=== PATIENT | female | born 1945 | race Caucasian/White ===

== ENCOUNTER 2022-10-28 16:51 | Emergency (ER) | payer BC ==
[~2022-10-28] VITALS: Ht 162.6 cm; Wt 72.6 kg
[2022-10-28 17:14] VITALS: BP 138/66
[2022-10-28 17:30] LABS: BASOPHILS # (AUTO) 0.1 K/uL (0.00-0.22); BASOPHILS % (AUTO) 1.2 % (0.0-2.0); EOSINOPHILS # (AUTO) 0.2 K/uL (0-0.4); EOSINOPHILS % (AUTO) 4.2 % (0.0-4.0); HEMATOCRIT 34.6 % (36-48); HEMOGLOBIN 11.6 g/dL (12.0-16.0); LYMPHOCYTES # (AUTO) 1.2 K/uL (2.5-16.5); MEAN CORPUSCULAR HEMOGLOBIN 31 pg (27-31); MEAN CORPUSCULAR HGB CONC 34 g/dL (33-37); MEAN CORPUSCULAR VOLUME 92.4 fL (80-94); MONOCYTES # (AUTO) 0.8 K/uL (0.8-1.0); MONOCYTES % (AUTO) 13.4 % (1.7-9.3); NEUTROPHILS # (AUTO) 3.6 K/uL (1.8-7.7); NEUTROPHILS % (AUTO) 61.2 % (42.2-75.2); PLATELET COUNT (AUTO) 185 K/uL (140-450); RED BLOOD CELL COUNT(AUTO) 3.74 MIL/uL (4.20-5.40); RED CELL DISTRIBUTION WIDTH 13.8 % (11.6-13.7); WHITE BLOOD COUNT (AUTO) 5.9 K/uL (4.8-10.8)
--- NOTE | 2022-10-28 17:35 | NUR ---
[facility];SARATH BURLESON [phone]
[2022-10-28 18:07] LABS: ALBUMIN 3.4 g/dL (3.4-5.0); ANION GAP 12.7 (8-16); ASPARTATE AMINOTRANSFERASE 22 U/L (15-37); CARBON DIOXIDE 26.4 mmol/L (21-32); CHLORIDE 104 mmol/L (98-107); CREATININE 0.7 mg/dL (0.6-1.3); GLUCOSE 127 mg/dL (74-106); POTASSIUM 4.1 mmol/L (3.5-5.1); SODIUM SERUM 139 mmol/L (136-145); TOTAL BILIRUBIN 0.3 mg/dL (0.0-1.0); UREA NITROGEN, BLOOD 18 mg/dL (7-18)
--- NOTE | 2022-10-28 18:10 | NUR ---
BIBA BLS TO ER BED 9
[2022-10-28] MEDS ORDERED: ACETAMINOPHEN EXTRA STRENGTH 500 MG TAB PO ONE (18:25)
--- NOTE | 2022-10-28 18:41 | NUR ---
ASSUMED PATIENT CARE, NURSING ASSESSMENT COMPLETED.
[2022-10-28 19:11] VITALS: BP 145/68
--- NOTE | 2022-10-28 19:45 | NUR ---
76 Y/O F presents with c/o of headache with a recent mechanical fall xyesterday at facility with L hip and knee pain. pt denies any pain at the moment. pt has a purewick in place and came from [facility]. pt is DNR with comfort measures. PMH- dementia YUNIORA
--- NOTE | 2022-10-28 20:04 | NUR ---
pt in room, respirations even and unlabored. pure wick in place and pt repositioned for comfort.
[2022-10-28] MEDS ORDERED: ACET-10509 PO (20:12)
--- NOTE | 2022-10-28 21:00 | NUR ---
spoke with cesilia at [facility] [phone] and [facility] approed the niee of pt to transport pt back to facility.
--- NOTE | 2022-10-28 21:02 | NUR ---
niece of pt is bedside assisting pt in getting dressed and preparing for discharge
--- NOTE | 2022-10-28 21:09 | NUR ---
Patient discharged with v/s stable. Written and verbal after care instructions given and explained. Patient alert, oriented and verbalized understanding of instructions. Wheel Chair Assisted with by caregiver. All questions addressed prior to discharge. ID band removed. Patient advised to follow up with PMD. Rx of acetamiophen given. . Opportunity to ask questions provided and answered.
--- NOTE | 2022-10-28 22:06 | NUR ---
The patient's care was reviewed and supervised by Fabby Wiggins RN, RN.
== END 2022-10-28 21:09 | disposition home or self-care (01) ==
LOC: MED 16:51
DX: M54.2 Cervicalgia (principal); M25.551 Pain in right hip; M25.552 Pain in left hip; R51.9 Headache, unspecified; Z20.822 Contact with and (suspected) exposure to COVID-19; F03.90 Unspecified dementia, unspecified severity, without behavioral disturbance, psychotic disturbance, mood disturbance, and anxiety; Z96.641 Presence of right artificial hip joint; W18.39XA Other fall on same level, initial encounter; Y92.129 Unspecified place in nursing home as the place of occurrence of the external cause; Y93.89 Activity, other specified; Y99.8 Other external cause status
CPT/HCPCS: 36415; 70450; 71045; 72125; 72170; 80053; 83605; 84484; 85025; 87040; 87426; 93005; 99285; G0482; Q0092

== ENCOUNTER 2023-03-23 20:27 | Emergency (ER) | payer BC ==
[~2023-03-23] VITALS: Ht 157.5 cm; Wt 59.0 kg
[~2023-03-23 20:27] MED LIST: ACET-10509 PO
[2023-03-23 20:30] VITALS: BP 144/71; PULSE 68; RESP 17; TEMP 97.2; O2SAT 96
[2023-03-23] MEDS ORDERED: cefTRIAXone 1,000 MG in DEXT 5% MINI-BAG PLUS 50 ML IV ONE (20:45)
[2023-03-23] MEDS ORDERED: cefTRIAXone 1,000 MG VIAL ONE (21:16)
[2023-03-23 21:46] LABS: BASOPHILS # (AUTO) 0.1 K/uL (0.00-0.22); BASOPHILS % (AUTO) 1.3 % (0.0-2.0); EOSINOPHILS # (AUTO) 0.1 K/uL (0-0.4); EOSINOPHILS % (AUTO) 2.4 % (0.0-4.0); HEMATOCRIT 34.7 % (36-48); HEMOGLOBIN 11.7 g/dL (12.0-16.0); LYMPHOCYTES # (AUTO) 1.6 K/uL (2.5-16.5); LYMPHOCYTES % (AUTO) 28.6 % (20.5-51.1); MEAN CORPUSCULAR HEMOGLOBIN 31 pg (27-31); MEAN CORPUSCULAR HGB CONC 34 g/dL (33-37); MEAN CORPUSCULAR VOLUME 91.9 fL (80-94); MONOCYTES # (AUTO) 0.7 K/uL (0.8-1.0); MONOCYTES % (AUTO) 12.6 % (1.7-9.3); NEUTROPHILS # (AUTO) 3.1 K/uL (1.8-7.7); NEUTROPHILS % (AUTO) 55.1 % (42.2-75.2); PLATELET COUNT (AUTO) 147 K/uL (140-450); RED BLOOD CELL COUNT(AUTO) 3.78 MIL/uL (4.20-5.40); RED CELL DISTRIBUTION WIDTH 14.4 % (11.6-13.7); WHITE BLOOD COUNT (AUTO) 5.7 K/uL (4.8-10.8)
[2023-03-23 21:56] LABS: ALANINE AMINOTRANSFERASE 24 U/L (12-78); ALBUMIN 3.4 g/dL (3.4-5.0); ALKALINE PHOSPHATASE 91 U/L (50-136); ANION GAP 11.1 (8-16); ASPARTATE AMINOTRANSFERASE 23 U/L (15-37); CALCIUM 8.9 mg/dL (8.5-10.1); CARBON DIOXIDE 26.8 mmol/L (21-32); CHLORIDE 106 mmol/L (98-107); CREATININE 0.8 mg/dL (0.6-1.3); GLUCOSE 85 mg/dL (74-106); POTASSIUM 3.9 mmol/L (3.5-5.1); SODIUM SERUM 140 mmol/L (136-145); TOTAL BILIRUBIN 0.3 mg/dL (0.0-1.0); TOTAL PROTEIN, SERUM 6.7 g/dL (6.4-8.2); UREA NITROGEN, BLOOD 19 mg/dL (7-18)
[2023-03-23 22:00] LABS: LACTIC ACID 0.6 mmol/L (0.4-2.0)
[2023-03-23 22:50] LABS: APPEARANCE,URINE CLEAR (CLEAR); BILIRUBIN,URINE NEGATIVE (NEGATIVE); BLOOD, URINE NEGATIVE (NEGATIVE); COLOR,URINE YELLOW (YELLOW); LEUKOCYTE ESTERASE ,URINE NEGATIVE (NEGATIVE); NITRITE, URINE NEGATIVE (NEGATIVE); PH,URINE 6.5 (5.0-9.0); PROTEIN,URINE NEGATIVE (NEGATIVE); UGLUCOSE NEGATIVE (NEGATIVE); UROBILINOGEN,URINE 0.2 EU/dL (0.2 - 1)
[2023-03-24 00:05] VITALS: BP 171/82; PULSE 62; RESP 17; TEMP 97.2; O2SAT 99
== END 2023-03-24 00:05 | disposition home or self-care (01) ==
LOC: MED 20:27
DX: R53.83 Other fatigue (principal); D53.9 Nutritional anemia, unspecified; F03.90 Unspecified dementia, unspecified severity, without behavioral disturbance, psychotic disturbance, mood disturbance, and anxiety; I10 Essential (primary) hypertension; K21.9 Gastro-esophageal reflux disease without esophagitis; E03.9 Hypothyroidism, unspecified; Z79.899 Other long term (current) drug therapy
CPT/HCPCS: 36415; 70450; 71045; 80053; 81003; 83605; 83880; 84484; 85025; 87040; 87086; 93005; 96365; 99285; J0696; Q0092

== ENCOUNTER 2023-05-27 10:15 | Inpatient (IN) | payer OTHER, MEDICAID ==
[~2023-05-27] VITALS: Ht 160 cm; Wt 52.2 kg
[2023-05-27 10:19] VITALS: BP 120/67; PULSE 75; RESP 18; TEMP 97.8; O2SAT 97
[2023-05-27] MEDS ORDERED: NACL 0.9% 1,000 ML IV ONE (11:05)
[2023-05-27 13:42] LABS: BASOPHILS % (AUTO) 0.8 % (0.0-2.0); EOSINOPHILS # (AUTO) 0.2 K/uL (0-0.4); EOSINOPHILS % (AUTO) 2.4 % (0.0-4.0); HEMATOCRIT 38.4 % (36-48); HEMOGLOBIN 12.6 g/dL (12.0-16.0); LYMPHOCYTES # (AUTO) 1.2 K/uL (2.5-16.5); MEAN CORPUSCULAR HEMOGLOBIN 31 pg (27-31); MEAN CORPUSCULAR HGB CONC 33 g/dL (33-37); MEAN CORPUSCULAR VOLUME 93.3 fL (80-94); MONOCYTES # (AUTO) 0.6 K/uL (0.8-1.0); MONOCYTES % (AUTO) 9.6 % (1.7-9.3); NEUTROPHILS # (AUTO) 4.2 K/uL (1.8-7.7); NEUTROPHILS % (AUTO) 67.2 % (42.2-75.2); PLATELET COUNT (AUTO) 150 K/uL (140-450); RED BLOOD CELL COUNT(AUTO) 4.12 MIL/uL (4.20-5.40); RED CELL DISTRIBUTION WIDTH 14.6 % (11.6-13.7); WHITE BLOOD COUNT (AUTO) 6.3 K/uL (4.8-10.8)
[2023-05-27 13:59] LABS: ALANINE AMINOTRANSFERASE 22 U/L (12-78); ALBUMIN 3.2 g/dL (3.4-5.0); ALKALINE PHOSPHATASE 76 U/L (50-136); ANION GAP 11.2 (8-16); ASPARTATE AMINOTRANSFERASE 29 U/L (15-37); CALCIUM 8.7 mg/dL (8.5-10.1); CARBON DIOXIDE 25.7 mmol/L (21-32); CHLORIDE 109 mmol/L (98-107); CREATININE 0.6 mg/dL (0.6-1.3); GLUCOSE 84 mg/dL (74-106); POTASSIUM 3.9 mmol/L (3.5-5.1); SODIUM SERUM 142 mmol/L (136-145); TOTAL BILIRUBIN 0.4 mg/dL (0.0-1.0); TOTAL PROTEIN, SERUM 6.8 g/dL (6.4-8.2); UREA NITROGEN, BLOOD 9 mg/dL (7-18)
[2023-05-27 15:38] LABS: THYROID STIMULATING HORMONE 16.59 uIU/mL (0.34-3.74)
[2023-05-27 16:36] LABS: APPEARANCE,URINE CLEAR (CLEAR); BILIRUBIN,URINE NEGATIVE (NEGATIVE); BLOOD, URINE NEGATIVE (NEGATIVE); COLOR,URINE YELLOW (YELLOW); LEUKOCYTE ESTERASE ,URINE NEGATIVE (NEGATIVE); NITRITE, URINE NEGATIVE (NEGATIVE); PH,URINE 7.5 (5.0-9.0); PROTEIN,URINE NEGATIVE (NEGATIVE); UGLUCOSE NEGATIVE (NEGATIVE); UROBILINOGEN,URINE 0.2 EU/dL (0.2 - 1)
[2023-05-27] MEDS ORDERED: ONDANSETRON 4 MG/2 ML VIAL IVP PRN (17:05)
[2023-05-27] MEDS ORDERED: HYDROcodone/APAP 5/325 MG 1 TAB TAB PO PRN (17:10)
[2023-05-27 19:30] VITALS: BP 150/72; PULSE 69; PULSE 82; RESP 18; TEMP 96.1; O2SAT 98
[2023-05-27 20:00] VITALS: PULSE 69; RESP 18; O2SAT 98
[2023-05-28] VITALS (9 sets, daily range): BP systolic 88–168; BP diastolic 61–81; PULSE 54–96; RESP 18; TEMP 96–97.2; O2SAT 95–99
[2023-05-28] MEDS: LEVOTHYROXINE 0.075 MG TAB PO SCH ×2 (06:17→06:41)
[2023-05-28] MEDS: MEMANTINE 10 MG TAB PO SCH (08:02)
[2023-05-28] MEDS: FAMOTIDINE 20 MG TAB PO SCH (08:02)
[2023-05-28] MEDS: LOSARTAN 25 MG TAB PO SCH (13:25)
[2023-05-28] MEDS: NACL 0.9% 1,000 ML IV SCH (16:41)
[2023-05-29] VITALS (7 sets, daily range): BP systolic 132–158; BP diastolic 66–89; PULSE 70–104; RESP 17–20; TEMP 97.1–98; O2SAT 93–100
[2023-05-29] MEDS: NACL 0.9% 1,000 ML IV SCH (04:25)
[2023-05-29] MEDS: LEVOTHYROXINE 0.075 MG TAB PO SCH (05:33)
[2023-05-29] MEDS: LOSARTAN 25 MG TAB PO SCH (09:17)
[2023-05-29] MEDS: FAMOTIDINE 20 MG TAB PO SCH (09:17)
[2023-05-29] MEDS: MEMANTINE 10 MG TAB PO SCH (09:17)
[2023-05-29] MEDS ORDERED: LISI2.5T14 PO (11:22)
[2023-05-29] MEDS ORDERED: SPIR25TA20 PO (11:22)
[2023-05-29] MEDS ORDERED: CARV3.12 PO (11:22)
[2023-05-29] MEDS ORDERED: MEMA10TA PO (11:22)
[2023-05-29] MEDS ORDERED: LEVO150C2 PO (11:22)
[2023-05-29] MEDS: HALOPERIDOL IM 5 MG/ML VIAL IM PRN ×2 (14:18→20:32)
[2023-05-29] MEDS: carvediloL 3.125 MG TAB PO SCH (20:32)
[2023-05-30 04:00] VITALS: BP 153/64; PULSE 65; RESP 16; TEMP 97.9; O2SAT 98
[2023-05-30] MEDS: LEVOTHYROXINE 0.075 MG TAB PO SCH (06:13)
[2023-05-30 06:58] LABS: BASOPHILS # (AUTO) 0.1 K/uL (0.00-0.22); EOSINOPHILS # (AUTO) 0.2 K/uL (0-0.4); HEMOGLOBIN 13.3 g/dL (12.0-16.0); LYMPHOCYTES # (AUTO) 1.9 K/uL (2.5-16.5); WHITE BLOOD COUNT (AUTO) 7.1 K/uL (4.8-10.8)
[2023-05-30 06:59] LABS: EOSINOPHILS % (AUTO) 2.5 % (0.0-4.0); LYMPHOCYTES % (AUTO) 26.9 % (20.5-51.1); MEAN CORPUSCULAR HEMOGLOBIN 31 pg (27-31); MEAN CORPUSCULAR HGB CONC 33 g/dL (33-37); MEAN CORPUSCULAR VOLUME 92.3 fL (80-94); MONOCYTES # (AUTO) 0.8 K/uL (0.8-1.0); MONOCYTES % (AUTO) 11.2 % (1.7-9.3); NEUTROPHILS # (AUTO) 4.2 K/uL (1.8-7.7); NEUTROPHILS % (AUTO) 58.4 % (42.2-75.2); PLATELET COUNT (AUTO) 116 K/uL (140-450); RED BLOOD CELL COUNT(AUTO) 4.34 MIL/uL (4.20-5.40); RED CELL DISTRIBUTION WIDTH 14.4 % (11.6-13.7)
[2023-05-30 07:02] LABS: ANION GAP 10.8 (8-16); CALCIUM 9.2 mg/dL (8.5-10.1); CARBON DIOXIDE 27.4 mmol/L (21-32); CHLORIDE 106 mmol/L (98-107); CREATININE 0.8 mg/dL (0.6-1.3); GLUCOSE 87 mg/dL (74-106); POTASSIUM 4.2 mmol/L (3.5-5.1); SODIUM SERUM 140 mmol/L (136-145); UREA NITROGEN, BLOOD 12 mg/dL (7-18)
[2023-05-30 08:00] VITALS: BP 161/77; PULSE 72; PULSE 80; RESP 18; TEMP 98; O2SAT 96; O2SAT 98
[2023-05-30] MEDS: FAMOTIDINE 20 MG TAB PO SCH (09:40)
[2023-05-30] MEDS: LOSARTAN 25 MG TAB PO SCH (09:40)
[2023-05-30] MEDS: SPIRONOLACTONE 25 MG TAB PO SCH (09:40)
[2023-05-30] MEDS: carvediloL 3.125 MG TAB PO SCH ×2 (09:40→21:00)
[2023-05-30] MEDS: MEMANTINE 10 MG TAB PO SCH (09:41)
[2023-05-30 16:00] VITALS: BP 156/75; PULSE 88; RESP 18; TEMP 96.8; O2SAT 98
[2023-05-30 20:00] VITALS: PULSE 78; O2SAT 96
[2023-05-30 21:57] VITALS: BP 128/76; PULSE 74; RESP 18; TEMP 97.6; O2SAT 96
[2023-05-31] MEDS: LEVOTHYROXINE 0.075 MG TAB PO SCH (06:26)
[2023-05-31 08:00] VITALS: BP 159/80; PULSE 74; RESP 18; TEMP 96.8; O2SAT 99
[2023-05-31 08:25] VITALS: PULSE 74; RESP 18; O2SAT 99
[2023-05-31] MEDS: carvediloL 3.125 MG TAB PO SCH ×2 (09:40→21:40)
[2023-05-31] MEDS: MEMANTINE 10 MG TAB PO SCH (09:40)
[2023-05-31] MEDS: LOSARTAN 25 MG TAB PO SCH (09:41)
[2023-05-31] MEDS: FAMOTIDINE 20 MG TAB PO SCH (09:41)
[2023-05-31] MEDS: SPIRONOLACTONE 25 MG TAB PO SCH (09:41)
[2023-05-31 16:00] VITALS: BP 147/67; PULSE 85; RESP 18; TEMP 97.7; O2SAT 99
[2023-05-31 20:00] VITALS: PULSE 75; RESP 18; O2SAT 97
[2023-06-01] VITALS: BP 128/60; PULSE 65; RESP 18; TEMP 98; O2SAT 97
[2023-06-01] MEDS: LEVOTHYROXINE 0.075 MG TAB PO SCH (06:36)
[2023-06-01 06:54] LABS: ALANINE AMINOTRANSFERASE 18 U/L (12-78); ALBUMIN 3.4 g/dL (3.4-5.0); ALKALINE PHOSPHATASE 91 U/L (50-136); ANION GAP 12.2 (8-16); ASPARTATE AMINOTRANSFERASE 22 U/L (15-37); CALCIUM 9.5 mg/dL (8.5-10.1); CARBON DIOXIDE 25.8 mmol/L (21-32); CHLORIDE 105 mmol/L (98-107); CREATININE 0.7 mg/dL (0.6-1.3); GLUCOSE 89 mg/dL (74-106); SODIUM SERUM 139 mmol/L (136-145); TOTAL BILIRUBIN 0.4 mg/dL (0.0-1.0); TOTAL PROTEIN, SERUM 7.4 g/dL (6.4-8.2); UREA NITROGEN, BLOOD 28 mg/dL (7-18)
[2023-06-01 08:00] VITALS: BP 119/65; PULSE 76; RESP 18; TEMP 96.9; O2SAT 97
[2023-06-01 08:24] LABS: BASOPHILS # (AUTO) 0.1 K/uL (0.00-0.22); BASOPHILS % (AUTO) 1.1 % (0.0-2.0); EOSINOPHILS # (AUTO) 0.2 K/uL (0-0.4); EOSINOPHILS % (AUTO) 2.9 % (0.0-4.0); HEMATOCRIT 41.2 % (36-48); HEMOGLOBIN 13.7 g/dL (12.0-16.0); LYMPHOCYTES # (AUTO) 1.6 K/uL (2.5-16.5); LYMPHOCYTES % (AUTO) 25.1 % (20.5-51.1); MEAN CORPUSCULAR HEMOGLOBIN 31 pg (27-31); MEAN CORPUSCULAR HGB CONC 33 g/dL (33-37); MEAN CORPUSCULAR VOLUME 92.7 fL (80-94); MONOCYTES # (AUTO) 0.8 K/uL (0.8-1.0); NEUTROPHILS # (AUTO) 3.8 K/uL (1.8-7.7); NEUTROPHILS % (AUTO) 58.9 % (42.2-75.2); PLATELET COUNT (AUTO) 161 K/uL (140-450); RED BLOOD CELL COUNT(AUTO) 4.44 MIL/uL (4.20-5.40); RED CELL DISTRIBUTION WIDTH 14.6 % (11.6-13.7); WHITE BLOOD COUNT (AUTO) 6.4 K/uL (4.8-10.8)
[2023-06-01 09:14] VITALS: PULSE 76; RESP 18; O2SAT 97
[2023-06-01] MEDS: LOSARTAN 25 MG TAB PO SCH (09:20)
[2023-06-01] MEDS: MEMANTINE 10 MG TAB PO SCH (09:20)
[2023-06-01] MEDS: FAMOTIDINE 20 MG TAB PO SCH (09:21)
[2023-06-01] MEDS: carvediloL 3.125 MG TAB PO SCH ×2 (09:21→20:34)
[2023-06-01] MEDS: SPIRONOLACTONE 25 MG TAB PO SCH (09:21)
[2023-06-01 14:48] VITALS: O2SAT 99
[2023-06-01 16:00] VITALS: BP 149/70; PULSE 79; RESP 18; TEMP 97.2; O2SAT 98
[2023-06-01 20:00] VITALS: BP 124/64; PULSE 82; RESP 18; TEMP 97.8; O2SAT 97
[2023-06-02 04:00] VITALS: BP 118/76; PULSE 75; RESP 15; TEMP 97.3; O2SAT 93
[2023-06-02] MEDS: LEVOTHYROXINE 0.075 MG TAB PO SCH (05:31)
[2023-06-02 06:47] LABS: BASOPHILS # (AUTO) 0.1 K/uL (0.00-0.22); BASOPHILS % (AUTO) 1.1 % (0.0-2.0); EOSINOPHILS # (AUTO) 0.2 K/uL (0-0.4); EOSINOPHILS % (AUTO) 2.4 % (0.0-4.0); HEMOGLOBIN 13.2 g/dL (12.0-16.0); LYMPHOCYTES # (AUTO) 1.7 K/uL (2.5-16.5); LYMPHOCYTES % (AUTO) 25.2 % (20.5-51.1); MEAN CORPUSCULAR HEMOGLOBIN 31 pg (27-31); MEAN CORPUSCULAR HGB CONC 33 g/dL (33-37); MEAN CORPUSCULAR VOLUME 92.5 fL (80-94); MONOCYTES # (AUTO) 0.9 K/uL (0.8-1.0); MONOCYTES % (AUTO) 12.7 % (1.7-9.3); NEUTROPHILS # (AUTO) 3.9 K/uL (1.8-7.7); NEUTROPHILS % (AUTO) 58.6 % (42.2-75.2); PLATELET COUNT (AUTO) 174 K/uL (140-450); RED BLOOD CELL COUNT(AUTO) 4.32 MIL/uL (4.20-5.40); RED CELL DISTRIBUTION WIDTH 14.3 % (11.6-13.7); WHITE BLOOD COUNT (AUTO) 6.7 K/uL (4.8-10.8)
[2023-06-02 07:30] LABS: ANION GAP 11.6 (8-16); CHLORIDE 106 mmol/L (98-107); CREATININE 0.8 mg/dL (0.6-1.3); GLUCOSE 106 mg/dL (74-106); POTASSIUM 4.6 mmol/L (3.5-5.1); SODIUM SERUM 142 mmol/L (136-145); UREA NITROGEN, BLOOD 27 mg/dL (7-18)
[2023-06-02 07:55] VITALS: PULSE 76
[2023-06-02 07:57] VITALS: PULSE 77; RESP 19; O2SAT 99
[2023-06-02] MEDS: MEMANTINE 10 MG TAB PO SCH (08:51)
[2023-06-02] MEDS: FAMOTIDINE 20 MG TAB PO SCH (08:51)
[2023-06-02] MEDS: LOSARTAN 25 MG TAB PO SCH (08:51)
[2023-06-02] MEDS: carvediloL 3.125 MG TAB PO SCH ×2 (08:51→22:33)
[2023-06-02] MEDS: SPIRONOLACTONE 25 MG TAB PO SCH (08:52)
[2023-06-02 16:00] VITALS: BP 124/69; PULSE 69; RESP 18; TEMP 97.5; O2SAT 95
[2023-06-02 20:00] VITALS: PULSE 77; RESP 17; O2SAT 96
[2023-06-03] VITALS: BP 128/67; PULSE 77; RESP 17; TEMP 97.6; O2SAT 96
[2023-06-03] MEDS: LEVOTHYROXINE 0.075 MG TAB PO SCH (06:09)
[2023-06-03 06:25] LABS: BASOPHILS # (AUTO) 0.1 K/uL (0.00-0.22); BASOPHILS % (AUTO) 1.1 % (0.0-2.0); EOSINOPHILS # (AUTO) 0.2 K/uL (0-0.4); HEMATOCRIT 38.5 % (36-48); HEMOGLOBIN 12.8 g/dL (12.0-16.0); LYMPHOCYTES # (AUTO) 1.5 K/uL (2.5-16.5); MEAN CORPUSCULAR HEMOGLOBIN 31 pg (27-31); MEAN CORPUSCULAR HGB CONC 33 g/dL (33-37); MONOCYTES # (AUTO) 0.8 K/uL (0.8-1.0); MONOCYTES % (AUTO) 13.2 % (1.7-9.3); NEUTROPHILS # (AUTO) 3.8 K/uL (1.8-7.7); NEUTROPHILS % (AUTO) 58.7 % (42.2-75.2); PLATELET COUNT (AUTO) 162 K/uL (140-450); RED BLOOD CELL COUNT(AUTO) 4.18 MIL/uL (4.20-5.40); RED CELL DISTRIBUTION WIDTH 14.6 % (11.6-13.7); WHITE BLOOD COUNT (AUTO) 6.4 K/uL (4.8-10.8)
[2023-06-03 06:55] LABS: CALCIUM 9.1 mg/dL (8.5-10.1); CARBON DIOXIDE 26.8 mmol/L (21-32); CHLORIDE 106 mmol/L (98-107); CREATININE 0.8 mg/dL (0.6-1.3); GLUCOSE 101 mg/dL (74-106); POTASSIUM 3.8 mmol/L (3.5-5.1); SODIUM SERUM 142 mmol/L (136-145); UREA NITROGEN, BLOOD 33 mg/dL (7-18)
[2023-06-03] MEDS: MEMANTINE 10 MG TAB PO SCH (09:00)
[2023-06-03] MEDS: carvediloL 3.125 MG TAB PO SCH (09:00)
[2023-06-03] MEDS: SPIRONOLACTONE 25 MG TAB PO SCH (09:01)
[2023-06-03] MEDS: LOSARTAN 25 MG TAB PO SCH (09:01)
[2023-06-03] MEDS: FAMOTIDINE 20 MG TAB PO SCH (09:02)
== END 2023-06-03 10:25 | DRG 312 ==
LOC: MED 10:15 → MTU 17:04
PROVIDERS: ADMIT Internal Medicine; ATTEND Internal Medicine
DX: I95.1 Orthostatic hypotension (principal); I50.22 Chronic systolic (congestive) heart failure; E44.1 Mild protein-calorie malnutrition; R65.10 Systemic inflammatory response syndrome (SIRS) of non-infectious origin without acute organ dysfunction; G90.8 Other disorders of autonomic nervous system; F03.90 Unspecified dementia, unspecified severity, without behavioral disturbance, psychotic disturbance, mood disturbance, and anxiety; E03.9 Hypothyroidism, unspecified; R00.1 Bradycardia, unspecified; I11.0 Hypertensive heart disease with heart failure
CPT/HCPCS: 36415; 70450; 71045; 72170; 80048; 80053; 81003; 83880; 84443; 84484; 85025; 87081; 93005; 96360; 97112; 97116; 97163-GP; 97530; 99285; J1630

== ENCOUNTER 2023-06-28 07:32 | Emergency (ER) | payer OTHER, MEDICAID ==
[~2023-06-28] VITALS: Ht 152.4 cm; Wt 52.2 kg
[~2023-06-28 07:32] MED LIST changes: +CARV3.12 PO; +LEVO150C2 PO; +LISI2.5T14 PO; +MEMA10TA PO; +SPIR25TA20 PO
[2023-06-28 07:35] VITALS: BP 133/70; PULSE 75; RESP 16; TEMP 97.8; O2SAT 98
[2023-06-28] MEDS ORDERED: LORazepam 2 MG/ML VIAL IVP ONE (08:15)
[2023-06-28] MEDS ORDERED: KETOROLAC 60 MG/2 ML VIAL IM ONE (08:25)
[2023-06-28 08:30] VITALS: O2SAT 98
[2023-06-28] MEDS ORDERED: IBUP-1842 PO (09:43)
[2023-06-28 10:39] VITALS: O2SAT 99
[2023-06-28 12:44] VITALS: BP 129/72; PULSE 82; RESP 14; TEMP 97.9; O2SAT 100
[2023-06-28] MEDS ORDERED: TOMOMETER 1 DEV DEV MC ONE (13:35)
== END 2023-06-28 12:55 | disposition home or self-care (01) ==
LOC: MED 07:32
DX: M54.50 Low back pain, unspecified (principal); F03.90 Unspecified dementia, unspecified severity, without behavioral disturbance, psychotic disturbance, mood disturbance, and anxiety; E03.9 Hypothyroidism, unspecified; I11.9 Hypertensive heart disease without heart failure; Z79.899 Other long term (current) drug therapy
CPT/HCPCS: 72100; 96372; 99285; J1885